=== PATIENT | male | born 1965 | race Caucasian/White ===

== ENCOUNTER → 2020-10-06 15:09 | Outpatient (BNVA) | payer OTHER, MEDICAID, SELFPAY | PROVIDERS: Family Provider Physician Assistant Medical; PCP Physician Assistant Medical; Referring Provider Dermatology; Visit Provider Podiatrist Foot & Ankle Surgery | DX: M79.672 Pain in left foot (principal); M79.671 Pain in right foot | CPT/HCPCS: 73630 ==

== ENCOUNTER 2020-11-05 15:35 | Outpatient (CLI) | payer OTHER, MEDICAID, SELFPAY | END 2020-11-05 15:36 | disposition home or self-care (01) | LOC: SPT 15:36 | PROVIDERS: Family Provider Physician Assistant Medical; PCP Physician Assistant Medical; Visit Provider Podiatrist Foot & Ankle Surgery | DX: Z46.89 Encounter for fitting and adjustment of other specified devices (principal); M72.2 Plantar fascial fibromatosis | CPT/HCPCS: 97760; L4397 ==

== ENCOUNTER → 2022-03-25 12:16 | Outpatient (BNVA) | payer MEDICARE, MEDICAID, SELFPAY | PROVIDERS: Family Provider Physician Assistant Medical; PCP Physician Assistant Medical; Visit Provider Podiatrist Foot & Ankle Surgery | DX: L53.9 Erythematous condition, unspecified (principal); M20.41 Other hammer toe(s) (acquired), right foot | CPT/HCPCS: 73630; 99214 ==

== ENCOUNTER → 2022-04-06 13:02 | Outpatient (BNVA) | payer MEDICARE, MEDICAID, SELFPAY | PROVIDERS: Family Provider Physician Assistant Medical; PCP Physician Assistant Medical; Visit Provider Podiatrist Foot & Ankle Surgery | DX: L53.9 Erythematous condition, unspecified (principal); M20.41 Other hammer toe(s) (acquired), right foot | CPT/HCPCS: 99213 ==

== ENCOUNTER → 2022-06-30 13:08 | Outpatient (BNVA) | payer MEDICARE, MEDICAID, SELFPAY | PROVIDERS: Family Provider Physician Assistant Medical; PCP Physician Assistant Medical; Visit Provider Podiatrist Foot & Ankle Surgery | DX: M71.571 Other bursitis, not elsewhere classified, right ankle and foot (principal); M21.621 Bunionette of right foot | CPT/HCPCS: 73630; 99213 ==

== ENCOUNTER → 2022-08-31 15:15 | Outpatient (BNVA) | payer MEDICARE, MEDICAID, SELFPAY | PROVIDERS: Family Provider Physician Assistant Medical; PCP Physician Assistant Medical; Visit Provider Internal Medicine Pulmonary Disease | DX: J30.9 Allergic rhinitis, unspecified (principal) | CPT/HCPCS: 99214 ==

== ENCOUNTER → 2023-04-17 10:32 | Outpatient (BNVA) | payer MEDICARE, MEDICAID, SELFPAY | PROVIDERS: Family Provider Physician Assistant Medical; PCP Physician Assistant Medical; Referring Provider Dermatology; Visit Provider Nurse Practitioner | DX: M77.11 Lateral epicondylitis, right elbow; R20.2 Paresthesia of skin; M77.8 Other enthesopathies, not elsewhere classified | CPT/HCPCS: 20550; 20605; 73080; 99204 ==

== ENCOUNTER → 2023-05-22 14:13 | Outpatient (BNVA) | payer MEDICARE, MEDICAID, SELFPAY | PROVIDERS: Family Provider Physician Assistant Medical; PCP Physician Assistant Medical; Visit Provider Nurse Practitioner | DX: M77.11 Lateral epicondylitis, right elbow (principal); R20.2 Paresthesia of skin; M77.8 Other enthesopathies, not elsewhere classified | CPT/HCPCS: 99214 ==

== ENCOUNTER → 2023-12-05 12:31 | Outpatient (BNVA) | payer MEDICARE, MEDICAID, SELFPAY | PROVIDERS: Family Provider Physician Assistant Medical; PCP Physician Assistant Medical; Visit Provider Student in an Organized Health Care Education/Training Program | DX: M77.11 Lateral epicondylitis, right elbow (principal) | CPT/HCPCS: 20605; 99213; J3301; J3490 ==

== ENCOUNTER → 2024-03-21 13:15 | Outpatient (BNVA) | payer MEDICARE, MEDICAID, SELFPAY | PROVIDERS: Family Provider Physician Assistant Medical; PCP Physician Assistant Medical; Visit Provider Student in an Organized Health Care Education/Training Program | DX: M77.11 Lateral epicondylitis, right elbow (principal); G89.29 Other chronic pain | CPT/HCPCS: 20605; 99213; J3301; J3490 ==

== ENCOUNTER → 2024-06-25 14:39 | Outpatient (BNVA) | payer MEDICARE, MEDICAID, SELFPAY | PROVIDERS: Family Provider Physician Assistant Medical; PCP Physician Assistant Medical; Visit Provider Student in an Organized Health Care Education/Training Program | DX: M77.11 Lateral epicondylitis, right elbow (principal) | CPT/HCPCS: 20605; 99213; J3301; J3490; J9999 ==

== ENCOUNTER → 2024-10-01 13:56 | Outpatient (BNVA) | payer MEDICARE, MEDICAID, SELFPAY | PROVIDERS: PCP Nurse Practitioner Family; Visit Provider Student in an Organized Health Care Education/Training Program | DX: M77.11 Lateral epicondylitis, right elbow (principal) | CPT/HCPCS: 20600; 20605; 99213 ==

== ENCOUNTER → 2024-12-24 10:40 | Outpatient (BNVA) | payer MEDICARE, MEDICAID, SELFPAY | PROVIDERS: PCP Nurse Practitioner Family; Visit Provider Nurse Practitioner Family | DX: I12.9 Hypertensive chronic kidney disease with stage 1 through stage 4 chronic kidney disease, or unspecified chronic kidney disease (principal); N18.31 Chronic kidney disease, stage 3a | CPT/HCPCS: 80053 ==

== ENCOUNTER 2024-12-31 16:05 | Outpatient (CLI) | payer MEDICARE, MEDICAID, SELFPAY | END 2024-12-31 16:06 | disposition home or self-care (01) | LOC: SPT 16:05 | PROVIDERS: PCP Nurse Practitioner Family; Visit Provider Student in an Organized Health Care Education/Training Program | DX: Z46.89 Encounter for fitting and adjustment of other specified devices (principal); M77.11 Lateral epicondylitis, right elbow | CPT/HCPCS: 20605; J3301; J3490; J9999; L3908 ==